=== PATIENT | female | born 1935 | race Caucasian/White ===

== ENCOUNTER → 2016-07-04 | Outpatient (CLI) | payer BC, OTHER ==
[~2016-07-04] MED LIST: ASPEC81 PO; AZPOPS OPB; BIMA0.038 OPB; CALCTAB5 PO; CEPH500C PO; MULT-506 PO; SULF800T23 PO; TIMO0.2527 OPB
--- NOTE | 2016-07-05 13:10 | MAMMOGRAPHY REPORT ---
BILATERAL DIGITAL SCREENING MAMMOGRAM WITH CAD: 07/04/2016 CLINICAL HISTORY: Routine screening. Patient has no complaints. TECHNIQUE: Current study was also evaluated with a Computer Aided Detection (CAD) system. Bilatera l CC and MLO views were obtained. COMPARISON: Comparison is made to exams dated: 06/28/2014 mammogram, 02/03/2013 mammogram, 2 mammogram, 01/30/2011 mammogram, 01/29/2010 mammogram, and 01/26/2009 mammogram - [facility]. BREAST COMPOSITION: There are scattered areas of fibroglandular density in both breasts. FINDINGS: No suspicious masses, calcifications, or areas of architectural distortion are noted in e ither breast. There has been no significant interval change compared to prior exams. IMPRESSION: ACR BI-RADS CATEGORY 1: NEGATIVE There is no mammographic evidence of malignancy. A 1 year screening mammogram is recommended. The p atient will receive written notification of the results. Approximately 10% of breast cancers are not detected with mammography. A negative mammographic repor t should not delay biopsy if a clinically suggestive mass is present. Ashley Luis M.D. /:07/04/2016 16:00:28 Atmospheric Drier Tender: Arleen Disla, [facility] letter sent: Normal 1/2 BI-RADS Code: ACR BI-RADS Category 1: Negative
== END | disposition home or self-care (01) ==
LOC: C.MAMM 15:38
PROVIDERS: ATTEND Family Medicine
DX: Z12.31 Encounter for screening mammogram for malignant neoplasm of breast (principal)

== ENCOUNTER → 2017-07-08 | Outpatient (CLI) | payer OTHER, BC ==
--- NOTE | 2017-07-09 14:21 | MAMMOGRAPHY REPORT ---
BILATERAL DIGITAL SCREENING MAMMOGRAM TOMOSYNTHESIS WITH CAD: 07/08/2017 CLINICAL HISTORY: Routine screening. Patient has no complaints. TECHNIQUE: Breast tomosynthesis in addition to standard 2D mammography was performed. Current study was also evaluated with a Computer Aided Detection (CAD) system. COMPARISON: Comparison is made to exams dated: 07/04/2016 mammogram, 07/04/2015 mammogram, 06/28/2014 m ammogram, 02/03/2013 mammogram, 02/03/2012 mammogram, and 01/30/2011 mammogram - [facility]. BREAST COMPOSITION: There are scattered areas of fibroglandular density in both breasts. FINDINGS: There are a few scattered benign round microcalcifications. Stable nodularity in the 12:00 right breast. No suspicious mass, architectural distortion or cluster of microcalcifications is see n. IMPRESSION: ACR BI-RADS CATEGORY 1: NEGATIVE There is no mammographic evidence of malignancy. A 1 year screening mammogram is recommended. The pa tient will receive written notification of the results. Approximately 10% of breast cancers are not detected with mammography. A negative mammographic report should not delay biopsy if a clinically suggestive mass is present. Renetta Howell M.D. ay/:07/08/2017 19:20:36 Parks And Recreation Manager: Talia MCGHEE)(M), [facility] letter sent: Normal 1/2 BI-RADS Code: ACR BI-RADS Category 1: Negative
== END | disposition home or self-care (01) ==
LOC: C.MAMM 09:46
PROVIDERS: ATTEND Family Medicine
DX: Z12.31 Encounter for screening mammogram for malignant neoplasm of breast (principal)

== ENCOUNTER 2021-10-23 14:17 | Observation (INO) ==
--- NOTE | 2021-10-23 15:00 | ED Triage Note ---
Date of Service October 23, 2021 History of Present Illness This patient was briefly evaluated while in triage. An abbreviated physical exam was performed. This patient is a 86-year-old Female who presents to the ED for evaluation of chills and vomiting. states this developed suddenly after lunch. Physical Exam VITALS: Vitals are noted on the nurse's note and reviewed by myself. Vital signs stable. GENERAL: This is an 86-year-old female, in no acute distress, well-developed well-nourished. HEART: Regular rate and rhythm without murmurs gallops or rubs. LUNGS: Clear to auscultation bilaterally without wheezes, rales or rhonchi. NEURO: Patient was alert and oriented to person place and time. Initial orders for labs and / or imaging were placed and patient was placed in the waiting area until a bed is available. Please see further documentation for the full ED course.
[2021-10-23] MEDS ORDERED: SODIUM CHLORIDE 0.9% 1000ML 500 ML IV ONE (17:11)
--- NOTE | 2021-10-23 17:17 | Emergency Department Note ---
Impression & Plan Nausea and vomiting, Transaminitis DC ED Provider Note HPI: The patient is an 86-year-old female with history of mild to moderate dementia according to her significant other at the bedside, presents the emergency department today with generalized illness as well as an episode of vomiting on the way to the hospital. Patient was telling her significant other today when they were on a walk that she was not feeling well. She was complaining of some chills, generalized weakness. They decided to come to the emergency room for evaluation and the patient had an episode of vomiting on the way over. On my assessment the patient is calm, she is in no acute distress, she is hemodynamically stable, she examines without any focal deficits, her abdomen is soft and nontender, she is currently denying any focal complaint of pain. Patient significant other at the bedside tells me that the patient has been complaining of feeling "cold" transiently over the past several days. She has not had any noted/documented fevers at home. ROS: -GI: Nausea and vomiting -General: Generalized weakness, chills *10 point review systems was conducted and is otherwise negative unless stated above *Outpatient medications and allergy history reviewed PE: General: Alert, NAD HEENT: Normocephalic, atraumatic Eyes: Extraocular eye movement is intact, no scleral erythema Pulmonary: Clear to auscultation bilaterally, no wheezing Cardio: Regular rate and rhythm GI: Abdomen is soft, mild tenderness diffusely to palpation without any guarding or rigidity, no distention : No suprapubic tenderness MSK: No evidence of trauma or malformation of the extremities, no edema Skin: No evidence of rash Neuro: Alert, no focal deficits Psychiatric: Cooperative manager monitoring: - An order was placed for continuous cardiac monitoring - Patient was noted to be in sinus rhythm with a rate of 90 EKG: Rate: 91 Rhythm: Normal sinus rhythm Intervals: Within normal limits ST changes: No ST elevation Time: 1656 Medical Decision Making: Patient presented to the emergency department with generalized weakness, an episode of emesis, also complaining of some chills recently. She does have a history of some moderate dementia and she is unable to give me a full history on arrival. History is obtained by the patient's at the bedside. Shortly after arrival IV was established, lab work obtained, CT imaging of the abdomen pelvis was ordered. Lab work shows evidence of a transaminitis with slightly elevated bilirubin. CT imaging of the abdomen pelvis does not show any obvious gallbladder pathology or any obvious acute surgical pathology.ultrasound imaging of the right upper quadrant was therefore ordered and does not show any obvious evidence of choledocholithiasis. Patient is remained hemodynamically stable here. Given the patient's age and comorbidities in addition to transaminitis with elevated bilirubin, I do feel that she should be admitted for GI consultation and further care. She may require MRCP or further diagnostic imaging to determine the source of her transaminitis and vomiting. Patient has not been actively vomiting here in the ED. She did require a dose of Zyprexa for some sundowning/agitation, she was actively trying to get out of bed and leave the department. She was assigned a one-to-one sitter. She did respond well to this. I discussed the above findings with the patient's , he is in agreement for the patient to be admitted. Case was then discussed with the on-call hospitalist for [facility] and the patient was admitted in stable condition for further care. Critical care time: 33 minutes -Administration of intramuscular medications for acute agitation in the setting of dementia, arrangement of admission for transaminitis and elevated bilirubin, time spent at the bedside, discussion with family and arrangement of admission Diagnosis: 1. Nausea and vomiting 2. Transaminitis 3. Elevated bilirubin level 4. Acute agitation in the setting of underlying dementia Disposition: Admission Dustin Hook DO Emergency Medicine Past Med/Surg History Social History Smoking Status: Never smoker Hx Alcohol Use: No Hx Substance Use: No Preferred Language: [place] Communication Ability: Impaired Communication Ability Comment: Patient has difficulty remembering medical history Polishing Wheel Repairer Required: No Beliefs That Will Affect Care: None Current Living Situation: Spouse Current Living Situation Comment: lives at home with Feels Safe at Home: Yes Safety Concerns: Feels Safe At This Time Assistive Devices: None Allergies Allergies Allergy/AdvReac Type Severity Reaction Status Date / Time adhesive Allergy Unknown UNKNOWN Verified 10/23/21 21:14 Bactrim Allergy Unknown UNKNOWN Verified 10/30/15 15:13 Cephalosporins Allergy Unknown UNKNOWN Verified 10/23/21 21:14 neomycin Allergy Unknown UNKNOWN Verified 10/23/21 21:14 Penicillins Allergy Unknown UNKNOWN Verified 10/23/21 21:14 Sulfa (Sulfonamide Allergy Unknown UNKNOWN Verified 10/23/21 21:14 Antibiotics) sulfamethoxazole [Bactrim] Allergy Unknown UNKNOWN Verified 10/23/21 21:14 trimethoprim [Bactrim] Allergy Unknown UNKNOWN Verified 10/23/21 21:14 Home Meds Home Medications Medication Instructions Recorded Confirmed bimatoprost 0.01 % eye drops 1 drp OPB HS 11/07/20 10/23/21 (Bab[place]unde) brinzolamide 1 % eye 1 drp OPB BID 11/07/20 10/23/21 drops,suspension memantine 10 mg tablet 10 mg PO BID 11/07/20 10/23/21 rivastigmine 4.6 mg/24 hour 1 patch topical DAILY 11/07/20 10/23/21 transdermal patch timolol maleate 0.25 % eye drops 1 drp OPB QAM 11/07/20 10/23/21 Results & Data (ED) Vital Signs Vital Signs - 24 hr 10/23/21 14:58 10/23/21 17:55 10/23/21 17:55 Temperature 37.0 C Temperature Source Temporal Artery Scan Pulse Rate 84 90 Pulse Rate [Finger] 90 Pulse Rhythm Regular Pulse Strength Normal Respiratory Rate 20 18 18 Respiratory Effort / Characteristics Non-Labored Spontaneous Respiratory Depth Normal Respiratory Pattern Regular Blood Pressure 117/72 Blood Pressure [Right Arm] 131/82 Blood Pressure Mean 87 Blood Pressure Mean [Right Arm] 98 Blood Pressure Position Sitting Pulse Oximetry 98 96 96 Oxygen Delivery Method Room Air Room Air Room Air Sepsis Recent Fever Within 48 Hours No Sepsis New/Unexplained Change in Mental Status No Sepsis Action Taken by Nursing No Action Required 10/23/21 18:00 10/23/21 21:00 Temperature Temperature Source Pulse Rate 90 Pulse Rate [Finger] 110 H Pulse Rhythm Pulse Strength Respiratory Rate 22 15 Respiratory Effort / Characteristics Respiratory Depth Respiratory Pattern Blood Pressure 130/77 Blood Pressure [Right Arm] 95/62 L Blood Pressure Mean 94 Blood Pressure Mean [Right Arm] 73 Blood Pressure Position Pulse Oximetry 99 93 Oxygen Delivery Method Room Air Room Air Sepsis Recent Fever Within 48 Hours Sepsis New/Unexplained Change in Mental Status Sepsis Action Taken by Nursing Laboratory Data Result diagrams: 10/23/21 17:47 10/23/21 17:47 Lab Results 10/23/21 10/23/21 10/23/21 Range/Units 17:47 17:47 17:47 WBC 7.14 (4.8-10.8) K/ul RBC 4.33 (3.93-5.22) M/uL Hgb 13.2 (12.0-16.0) g/dl Hct 39.3 (34.1-44.9) % MCV 90.8 (80.0-100.0) fL MCH 30.5 (25.0-34.0) pg MCHC 33.6 (32.0-36.0) g/dL RDW Std Deviation 47.2 H (36.4-46.3) fL RDW Coeff of Erin 14.3 (11.5-14.5) % Plt Count 237 (130-400) K/uL MPV 9.6 (9.4-12.3) fL Immature Gran % (Auto) 0.4 % Neut % (Auto) 80.9 % Lymph % (Auto) 7.1 % [place] % (Auto) 9.5 % Eos % (Auto) 1.8 % Baso % (Auto) 0.3 % Neut # (Auto) 5.77 (1.4-6.5) K/uL Lymph # (Auto) 0.51 L (1.2-3.4) K/uL [place] # (Auto) 0.68 (0.24-0.82) K/uL Eos # (Auto) 0.13 (0-0.50) K/uL Baso # (Auto) 0.02 (0-0.2) K/uL Immature Gran # (Auto) 0.03 H (0.00-0.02) K/uL ESR (0-30) mm/hr PT (9.0-12.0) Seconds INR (0.9-1.1) Sodium 136 (136-145) mmol/L Potassium 3.9 (3.5-5.1) mmol/L Chloride 103 (98-107) mmol/L Carbon Dioxide 25 (21-32) mmol/L Anion Gap 8 (3-11) BUN 17 (6-23) mg/dl Creatinine 0.76 (0.6-1.2) mg/dl Est Cr Clr Drug Dosing 40.5 ml/min Est GFR ( Amer) 81.2 ml/min Est GFR (Non-Af Amer) 70.0 ml/min BUN/Creatinine Ratio 22.4 H (10-20) Glucose 105 H (70-99(Fasting)) mg/dl Calcium 8.8 (8.5-10.1) mg/dl Total Bilirubin 1.2 H (0.2-1.0) mg/dl AST 904 H (13-39) U/L ALT 448 H (7-52) U/L Alkaline Phosphatase 254 H (34-104) U/L Troponin I High Sens 7.9 (0-14) pg/ml C-Reactive Protein (0-0.5) mg/dl Total Protein 6.4 (6.0-8.3) gm/dl Albumin 3.9 (3.4-5.0) gm/dl Globulin 2.5 (2.5-4.0) gm/dl Albumin/Globulin Ratio 1.6 (0.9-2) Urine Color Cancelled Urine Appearance Cancelled Urine pH Cancelled Ur Specific [place] Cancelled Urine Protein Cancelled Urine Glucose (UA) Cancelled Urine Ketones Cancelled Urine Blood Cancelled Urine Nitrite Cancelled Urine Bilirubin Cancelled Urine Urobilinogen Cancelled Ur Leukocyte Esterase Cancelled Urine WBC (Auto) Cancelled Urine RBC (Auto) Cancelled U Hyaline Cast (Auto) Cancelled U Epithel Cells (Auto) Cancelled Urine Bacteria (Auto) Cancelled Ur Renal Epithelial Cell Cancelled Urine Crystals Cancelled Calcium Oxalate Crystal Cancelled Uric Acid Crystals Cancelled Triple Phos Crystals Cancelled Other Crystals Cancelled Amorphous Sediment Cancelled Granular Casts Cancelled Waxy Casts Cancelled RBC Casts Cancelled WBC Casts Cancelled Other Casts Cancelled Urine Mucus Cancelled Urine Other Cancelled Urine Trichomonas Cancelled Urine Yeast Cancelled Urine Sperm Cancelled Ur Oval Fat Bodies Cancelled SARS-CoV-2 (PCR) (Negative) Influenza Type A (PCR) (Neg) Influenza Type B (PCR) (Neg) RSV (RT-PCR) (Neg) 10/23/21 10/23/21 10/23/21 Range/Units 17:47 17:47 17:47 WBC (4.8-10.8) K/ul RBC (3.93-5.22) M/uL Hgb (12.0-16.0) g/dl Hct (34.1-44.9) % MCV (80.0-100.0) fL MCH (25.0-34.0) pg MCHC (32.0-36.0) g/dL RDW Std Deviation (36.4-46.3) fL RDW Coeff of Erin (11.5-14.5) % Plt Count (130-400) K/uL MPV (9.4-12.3) fL Immature Gran % (Auto) % Neut % (Auto) % Lymph % (Auto) % [place] % (Auto) % Eos % (Auto) % Baso % (Auto) % Neut # (Auto) (1.4-6.5) K/uL Lymph # (Auto) (1.2-3.4) K/uL [place] # (Auto) (0.24-0.82) K/uL Eos # (Auto) (0-0.50) K/uL Baso # (Auto) (0-0.2) K/uL Immature Gran # (Auto) (0.00-0.02) K/uL ESR 16 (0-30) mm/hr PT 11.3 (9.0-12.0) Seconds INR 1.1 (0.9-1.1) Sodium (136-145) mmol/L Potassium (3.5-5.1) mmol/L Chloride (98-107) mmol/L Carbon Dioxide (21-32) mmol/L Anion Gap (3-11) BUN (6-23) mg/dl Creatinine (0.6-1.2) mg/dl Est Cr Clr Drug Dosing ml/min Est GFR ( Amer) ml/min Est GFR (Non-Af Amer) ml/min BUN/Creatinine Ratio (10-20) Glucose (70-99(Fasting)) mg/dl Calcium (8.5-10.1) mg/dl Total Bilirubin (0.2-1.0) mg/dl AST (13-39) U/L ALT (7-52) U/L Alkaline Phosphatase (34-104) U/L Troponin I High Sens (0-14) pg/ml C-Reactive Protein (0-0.5) mg/dl Total Protein (6.0-8.3) gm/dl Albumin (3.4-5.0) gm/dl Globulin (2.5-4.0) gm/dl Albumin/Globulin Ratio (0.9-2) Urine Color Urine Appearance Urine pH Ur Specific [place] Urine Protein Urine Glucose (UA) Urine Ketones Urine Blood Urine Nitrite Urine Bilirubin Urine Urobilinogen Ur Leukocyte Esterase Urine WBC (Auto) Urine RBC (Auto) U Hyaline Cast (Auto) U Epithel Cells (Auto) Urine Bacteria (Auto) Ur Renal Epithelial Cell Urine Crystals Calcium Oxalate Crystal Uric Acid Crystals Triple Phos Crystals Other Crystals Amorphous Sediment Granular Casts Waxy Casts RBC Casts WBC Casts Other Casts Urine Mucus Urine Other Urine Trichomonas Urine Yeast Urine Sperm Ur Oval Fat Bodies SARS-CoV-2 (PCR) NEGATIVE (Negative) Influenza Type A (PCR) Negative (Neg) Influenza Type B (PCR) Negative (Neg) RSV (RT-PCR) Negative (Neg) 10/23/21 Range/Units 17:47 WBC (4.8-10.8) K/ul RBC (3.93-5.22) M/uL Hgb (12.0-16.0) g/dl Hct (34.1-44.9) % MCV (80.0-100.0) fL MCH (25.0-34.0) pg MCHC (32.0-36.0) g/dL RDW Std Deviation (36.4-46.3) fL RDW Coeff of Erin (11.5-14.5) % Plt Count (130-400) K/uL MPV (9.4-12.3) fL Immature Gran % (Auto) % Neut % (Auto) % Lymph % (Auto) % [place] % (Auto) % Eos % (Auto) % Baso % (Auto) % Neut # (Auto) (1.4-6.5) K/uL Lymph # (Auto) (1.2-3.4) K/uL [place] # (Auto) (0.24-0.82) K/uL Eos # (Auto) (0-0.50) K/uL Baso # (Auto) (0-0.2) K/uL Immature Gran # (Auto) (0.00-0.02) K/uL ESR (0-30) mm/hr PT (9.0-12.0) Seconds INR (0.9-1.1) Sodium (136-145) mmol/L Potassium (3.5-5.1) mmol/L Chloride (98-107) mmol/L Carbon Dioxide (21-32) mmol/L Anion Gap (3-11) BUN (6-23) mg/dl Creatinine (0.6-1.2) mg/dl Est Cr Clr Drug Dosing ml/min Est GFR ( Amer) ml/min Est GFR (Non-Af Amer) ml/min BUN/Creatinine Ratio (10-20) Glucose (70-99(Fasting)) mg/dl Calcium (8.5-10.1) mg/dl Total Bilirubin (0.2-1.0) mg/dl AST (13-39) U/L ALT (7-52) U/L Alkaline Phosphatase (34-104) U/L Troponin I High Sens (0-14) pg/ml C-Reactive Protein 2.14 H (0-0.5) mg/dl Total Protein (6.0-8.3) gm/dl Albumin (3.4-5.0) gm/dl Globulin (2.5-4.0) gm/dl Albumin/Globulin Ratio (0.9-2) Urine Color Urine Appearance Urine pH Ur Specific [place] Urine Protein Urine Glucose (UA) Urine Ketones Urine Blood Urine Nitrite Urine Bilirubin Urine Urobilinogen Ur Leukocyte Esterase Urine WBC (Auto) Urine RBC (Auto) U Hyaline Cast (Auto) U Epithel Cells (Auto) Urine Bacteria (Auto) Ur Renal Epithelial Cell Urine Crystals Calcium Oxalate Crystal Uric Acid Crystals Triple Phos Crystals Other Crystals Amorphous Sediment Granular Casts Waxy Casts RBC Casts WBC Casts Other Casts Urine Mucus Urine Other Urine Trichomonas Urine Yeast Urine Sperm Ur Oval Fat Bodies SARS-CoV-2 (PCR) (Negative) Influenza Type A (PCR) (Neg) Influenza Type B (PCR) (Neg) RSV (RT-PCR) (Neg) Administered Medications Discontinued Medications Sodium Chloride (Nss 1000ml) 500 mls @ 999 mls/hr IV .Q31M ONE Stop: 10/23/21 17:41 Last Infusion: 10/23/21 18:34 Dose: 0 mls/hr Documented By: Admin: 10/23/21 18:02 Dose: 999 mls/hr Documented By: MARINA Lactated Ringer's (Lr) 500 mls @ 250 mls/hr IV .Q2H ONE Stop: 10/23/21 23:26 Last Admin: 10/23/21 22:00 Dose: 250 mls/hr Documented By: VIVIANA Ioversol (Optiray 300 100ml) 90 ml IV ONCE ONE Stop: 10/23/21 18:50 Last Admin: 10/23/21 18:50 Dose: 90 ml Documented By: CHUY Olanzapine (Olanzapine 10 Mg/2.1 Ml Sdv) 5 mg IM NOW STA Stop: 10/23/21 19:30 Last Admin: 10/23/21 19:42 Dose: 5 mg Documented By: VIVIANA Imaging Data Radiologist's Impression: Abdomen/Pelvis CT 10/23/21 17:[address] WITH IV CONTRAST CT DOSE: 475.52 mGy.cm HISTORY: Acute nausea and vomiting N/V TECHNIQUE: Multiaxial CT images of the abdomen and pelvis were performed following the IV administration of 88 cc of Optiray, A dose lowering technique was utilized adhering to the principles of ALARA. COMPARISON STUDY: None. FINDINGS: The study is motion degraded. Subsegmental bibasilar atelectasis. There is no pneumatosis or pneumoperitoneum. Cardiomegaly with coronary artery calcifications. The spleen, pancreas, adrenal glands and gallbladder are unremarkable. Liver is also within normal limits. Patency of the hepatic and portal veins. Symmetric enhancement of the kidneys. No hydronephrosis. Unremarkable urinary bladder. Calcifications of the uterus are suggestive of fibroids. There is questioned thickening of the fundal endometrium. Atherosclerosis of the aorta without aneurysm. There is no lymphadenopathy identified. Tiny hiatal hernia. No bowel obstruction or bowel wall thickening. Colonic diverticulosis without acute diverticulitis. Mild to moderate colonic fecal rete ntion. Normal appendix. Unremarkable soft tissues. Multilevel degenerative changes of the lumbar spine. Probable disc extrusion posterior to L5 results in at least moderate central canal stenosis. IMPRESSION: 1. No bowel obstruction or bowel wall thickening. Normal appendix. 2. Colonic diverticulosis without acute diverticulitis. 3. Fibroid uterus. 4. Small hiatal hernia. 5. Additional findings as above. ACT 112: Negative or not required by law. The above report was generated using voice recognition software. It may contain grammatical, syntax or spelling errors. Electronically signed by: Kana Justice M.D. 10/23/2021 7:13 PM Chest X-Ray 10/23/21 17:12 XR chest 1V portable CLINICAL HISTORY: N/V TECHNIQUE: Single frontal radiograph of the chest was obtained. Comparison: Comparison is made to 06/22/[address] chest 02/12/2006 FINDINGS: No lines and tubes are seen. Calcified aortic knob is seen. The lungs are clear. No evidence of pleural effusion or pneumothorax. IMPRESSION: No acute chest disease. ACT 112: Negative or not required by law. Electronically signed by: Hans Paris M.D. 10/23/2021 5:34 PM Gallbladder Ultrasound 10/23/21 19:24 US gallbladder HISTORY: 86 years-old Female Transaminitis, vomiting acute nausea with vomiting COMPARISON: CT abdomen and pelvis of same day TECHNIQUE: Multiple real-time sonographic images of the abdominal right upper quadrant were obtained assessing grayscale appearance and color flow FINDINGS: The visualized pancreas is unremarkable. The liver is within normal limits measuring 13.67 m in length. No hepatic mass identified. Trace gallbladder sludge without cholelithiasis, wall thickening or pericholecystic fluid. Negative sonographic Manning's sign. Normal common bile duct, 5 mm. The imaged right kidney is unremarkable without hydronephrosis. IMPRESSION: 1. Trace gallbladder sludge without cholelithiasis or sonographic evidence of acute cholecystitis. 2. No biliary ductal dilation. ACT 112: Negative or not required by law. The above report was generated using voice recognition software. It may contain grammatical, syntax or spelling errors. Electronically signed by: Kana Justice M.D. 10/23/2021 8:40 PM Discharge Plan Visit Data Chief Complaint: Vomiting Stated Complaint: VOMITING ED Provider: Dustin Hook Discharge Problem: Nausea and vomiting, Transaminitis Patient Disposition: Admitted As Inpatient Discharge Instructions Interventions: ED Discharge Assessment Last Done: 10/23/21 22:32
--- NOTE | 2021-10-23 17:36 | XRay Report ---
XR chest 1V portable CLINICAL HISTORY: N/V TECHNIQUE: Single frontal radiograph of the chest was obtained. Comparison: Comparison is made to 06/22/[address] chest 02/12/2006 FINDINGS: No lines and tubes are seen. Calcified aortic knob is seen. The lungs are clear. No evidence of pleur al effusion or pneumothorax. IMPRESSION: No acute chest disease. ACT 112: Negative or not required by law. Electronically signed by: Hans Paris M.D. 10/23/2021 5:34 PM
[2021-10-23 18:07] LABS: Basophils # (auto) 0.02 K/uL (0-0.2); Basophils % (auto) 0.3 %; Eosinophils # (auto) 0.13 K/uL (0-0.50); Eosinophils % (auto) 1.8 %; Hematocrit (blood only) 39.3 % (34.1-44.9); Hemoglobin 13.2 g/dl (12.0-16.0); Immature Granulocytes # (auto) 0.03 K/uL (0.00-0.02); Immature Granulocytes % (auto) 0.4 %; Lymphocytes # (auto) 0.51 K/uL (1.2-3.4); Lymphocytes % (auto) 7.1 %; Mean Corpuscular Hemoglobin 30.5 pg (25.0-34.0); Mean Corpuscular Hgb Conc 33.6 g/dL (32.0-36.0); Mean Corpuscular Volume 90.8 fL (80.0-100.0); Mean Platelet Volume 9.6 fL (9.4-12.3); Monocytes # (auto) 0.68 K/uL (0.24-0.82); Monocytes % (auto) 9.5 %; Neutrophils # (auto) 5.77 K/uL (1.4-6.5); Neutrophils % (auto) 80.9 %; Platelet Count 237 K/uL (130-400); RDW Coefficient of Variation 14.3 % (11.5-14.5); RDW Standard Deviation 47.2 fL (36.4-46.3); Red Blood Count 4.33 M/uL (3.93-5.22); White Blood Count 7.14 K/ul (4.8-10.8)
[2021-10-23 18:33] LABS: Troponin I High Sensitivity 7.9 pg/ml (0-14)
[2021-10-23 18:34] LABS: Albumin Globulin Ratio 1.6 (0.9-2); Albumin Level 3.9 gm/dl (3.4-5.0); BUN Creatinine Ratio 22.4 (10-20); Bilirubin,Total 1.2 mg/dl (0.2-1.0); Calcium 8.8 mg/dl (8.5-10.1); Creatinine Clr Calc Pharmacy 40.5 ml/min; Est GFR (African American) 81.2 ml/min; Globulin 2.5 gm/dl (2.5-4.0); Potassium 3.9 mmol/L (3.5-5.1); Total Protein 6.4 gm/dl (6.0-8.3)
[2021-10-23] MEDS ORDERED: OPTIRAY 300 100mL IV ONE (18:49)
[2021-10-23 18:50] LABS: Influenza A virus by PCR Negative (Neg); Influenza B virus by PCR Negative (Neg); RSV by PCR Negative (Neg); SARS CoV2 RNA(COVID-19) InHosp NEGATIVE (Negative)
--- NOTE | 2021-10-23 19:16 | CT Scan Report ---
ABDOMEN AND PELVIS CT WITH IV CONTRAST CT DOSE: 475.52 mGy.cm HISTORY: Acute nausea and vomiting N/V TECHNIQUE: Multiaxial CT images of the abdomen and pelvis were performed following the IV administrat ion of 88 cc of Optiray, A dose lowering technique was utilized adhering to the principles of ALARA. COMPARISON STUDY: None. FINDINGS: The study is motion degraded. Subsegmental bibasilar atelectasis. There is no pneumatosis o r pneumoperitoneum. Cardiomegaly with coronary artery calcifications. The spleen, pancreas, adrenal g lands and gallbladder are unremarkable. Liver is also within normal limits. Patency of the hepatic an d portal veins. Symmetric enhancement of the kidneys. No hydronephrosis. Unremarkable urinary bladder . Calcifications of the uterus are suggestive of fibroids. There is questioned thickening of the fund al endometrium. Atherosclerosis of the aorta without aneurysm. There is no lymphadenopathy identified . Tiny hiatal hernia. No bowel obstruction or bowel wall thickening. Colonic diverticulosis without acu te diverticulitis. Mild to moderate colonic fecal retention. Normal appendix. Unremarkable soft tissu es. Multilevel degenerative changes of the lumbar spine. Probable disc extrusion posterior to L5 resu lts in at least moderate central canal stenosis. IMPRESSION: 1. No bowel obstruction or bowel wall thickening. Normal appendix. 2. Colonic diverticulosis without acute diverticulitis. 3. Fibroid uterus. 4. Small hiatal hernia. 5. Additional findings as above. ACT 112: Negative or not required by law. The above report was generated using voice recognition software. It may contain grammatical, syntax o r spelling errors. Electronically signed by: Kana Justice M.D. 10/23/2021 7:13 PM
[2021-10-23] MEDS ORDERED: OLANZapine 10 MG/2.1 ML SDV IM STA (19:29)
--- NOTE | 2021-10-23 20:41 | Ultrasound Report ---
US gallbladder HISTORY: 86 years-old Female Transaminitis, vomiting acute nausea with vomiting COMPARISON: CT abdomen and pelvis of same day TECHNIQUE: Multiple real-time sonographic images of the abdominal right upper quadrant were obtained assessing grayscale appearance and color flow FINDINGS: The visualized pancreas is unremarkable. The liver is within normal limits measuring 13.67 m in lengt h. No hepatic mass identified. Trace gallbladder sludge without cholelithiasis, wall thickening or pe richolecystic fluid. Negative sonographic Manning's sign. Normal common bile duct, 5 mm. The imaged right kidney is unremarkable without hydronephrosis. IMPRESSION: 1. Trace gallbladder sludge without cholelithiasis or sonographic evidence of acute cholecystitis. 2. No biliary ductal dilation. ACT 112: Negative or not required by law. The above report was generated using voice recognition software. It may contain grammatical, syntax o r spelling errors. Electronically signed by: Kana Justice M.D. 10/23/2021 8:40 PM
[2021-10-23] MEDS ORDERED: LACTATED RINGER'S 500 ML IV ONE (21:27)
[2021-10-23] MEDS ORDERED: ONDANSETRON INJ 2 MG/ML 2 ML VIAL IV PRN (21:32)
[2021-10-23] MEDS ORDERED: POLYETHYLENE (MIRALAX) 17 GM PACK PO PRN (21:32)
--- NOTE | 2021-10-23 21:59 | History & Physical Report ---
Date of Service October 23, 2021 Assessment & Plan (1) Transaminitis: Plan: - unclear etiology but may be medication injury - PLT wnl and imaging negative for any hepatic or gallbladder lesions or pathology - no new supplements or foods, alcohol or acetaminophen ingestion, no sick contacts or drug use - new medication, atorvastatin within last 3 days could explain liver findings but would be rare - will hold statin - will send hepatitis panel, GARY, ggt, CRP, ESR, CK, INR - GI consult placed - will monitor for now (2) Nausea and vomiting: Plan: - unclear if related to liver findings - no subsequent episodes - denies nausea on exam - denies abdominal pain - CT-AP unremarkable for intraabdominal pathology - IV hydration - will monitor (3) Mild dementia: Plan: - takes memantine and rivastigmine patch for many years - had episode of sundowning in ED s/p IM zyprexa with good result - patient pleasantly confused and interactive on my exam - will monitor - gentle redirection if possible Plan DVT ppx: lovenox Code Status: Full Code Dispo: telemetry Jostin Pereira MD Hospital Medicine Admission and Anticipated Discharge Date Admission Date: 10/23/2021 History of Present Illness Chief Complaint: nausea and vomiting x1 Primary Care Provider: Rom Frazier MD The patient is an 86 year old woman with pmh mild dementia who presented with a 1-2 days of feeling "cold" and weakness and one episode of vomiting on the way to the hospital. The history was taken mainly from her , Danny Rosa, as the patient was mildly confused in the ED. She reported not complaints on evaluation. Her noted that she expressed feeling a little weak and at times "cold" that required extra clothing. He denied that she had a fever, cough, shortness of breath, chest pain, diarrhea, abdominal pain, ambulatory issues. She did not have nausea or vomiting until on the way to the hospital, she had one episode of vomiting that he described as "minimal." Of not she is only taking memantine and rivastigmine patch for up to 10 years for dementia. She recently, about 3 days ago, started taking atorvastatin prescribed by her doctor. Otherwise, he denies any other new medications, no other sick contacts, tick exposures, supplements, new foods, alcohol use, acetaminophen ingestion. She is mostly independent but relies on her for some ADLs but she is ambulatory without issue, going to the gym and walking about 3x/week. Denies alcohol, tobacco, drug use. Discussed with patient's Code status and they have an advanced directive that indicates full code but would not want life prolonged on ventilator if things did not improve relatively quickly and course is to be prolonged and indicated that he is the POA. Patient status put as Full Code. In the ED, vitals initially stable. Labs were significant for WBC 7, PLT 237, tbili 1.2, AST 904, ALT 448, ALP 254 (previously normal). Imaging with CT-AP and Liver US were unremarkable for biliary or hepatic abnormalities. She was admitted to medicine for further work up and management. Allergies Allergy/AdvReac Type Severity Reaction Status Date / Time adhesive Allergy Unknown UNKNOWN Verified 10/23/21 21:14 Bactrim Allergy Unknown UNKNOWN Verified 10/30/15 15:13 Cephalosporins Allergy Unknown UNKNOWN Verified 10/23/21 21:14 neomycin Allergy Unknown UNKNOWN Verified 10/23/21 21:14 Penicillins Allergy Unknown UNKNOWN Verified 10/23/21 21:14 Sulfa (Sulfonamide Allergy Unknown UNKNOWN Verified 10/23/21 21:14 Antibiotics) sulfamethoxazole [Bactrim] Allergy Unknown UNKNOWN Verified 10/23/21 21:14 trimethoprim [Bactrim] Allergy Unknown UNKNOWN Verified 10/23/21 21:14 Home Medications Medication Instructions Recorded Confirmed Type bimatoprost 0.01 % eye drops 1 drp OPB HS 11/07/20 10/23/21 History (Lumigan) brinzolamide 1 % eye 1 drp OPB BID 11/07/20 10/23/21 History drops,suspension memantine 10 mg tablet 10 mg PO BID 11/07/20 10/23/21 History rivastigmine 4.6 mg/24 hour 1 patch topical DAILY 11/07/20 10/23/21 History transdermal patch timolol maleate 0.25 % eye drops 1 drp OPB QAM 11/07/20 10/23/21 History Past Med/Surg History Social History Smoking Status: Never smoker Preferred Language: Vietnamese Feels Safe at Home: Yes Review of Systems Review of Systems: All systems reviewed & are unremarkable except as noted in Subjective Physical Exam Constitutional: WD/WN, vitals as above Eyes: PERRL, conjunctivae normal, anicteric sclerae ENMT: external ear and nose normal, oropharynx normal Neck: trachea midline, no thyromegaly Respiratory: normal respiratory effort, lungs clear to auscultation Cardiovascular: RRR, no murmur, no edema Gastrointestinal (Abdomen): normal bowel sounds, soft, nontender, no hepatosplenomegaly Musculoskeletal: no cyanosis or clubbing, extremities motor strength 5/5 Skin: no rashes, warm and dry Neurologic: patellar DTR's 2+ bilat, sensation intact and PERRL, EOMI, accommodation nl, no face palsy, no dysarthria Psychiatric: Orientation: alert, oriented to person, oriented to time and cooperative; + not oriented to place Affect: euthymic affect Results & Data Results & Data ([facility]) Vital Signs (Past 12 Hours) Vital Signs Temp Pulse Pulse Resp BP BP Pulse Ox 10/23/21 21:00 110 H 15 95/62 L 93 10/23/21 18:00 90 22 130/77 99 10/23/21 17:55 90 18 96 10/23/21 17:55 90 18 131/82 96 10/23/21 14:58 37.0 C 84 20 117/72 98 O2 Del Method 10/23/21 21:00 Room Air 10/23/21 18:00 Room Air 10/23/21 17:55 Room Air 10/23/21 17:55 Room Air 10/23/21 14:58 Room Air Laboratory Results Short CBC 10/23/21 Range/Units 17:47 WBC 7.14 (4.8-10.8) K/ul Hgb 13.2 (12.0-16.0) g/dl Hct 39.3 (34.1-44.9) % Plt Count 237 (130-400) K/uL BMP 10/23/21 17:47 Sodium 136 Potassium 3.9 Chloride 103 Carbon Dioxide 25 BUN 17 Creatinine 0.76 Glucose 105 H Calcium 8.8 Liver Function 10/23/21 Range/Units 17:47 Total Bilirubin 1.2 H (0.2-1.0) mg/dl AST 904 H (13-39) U/L ALT 448 H (7-52) U/L Alkaline Phosphatase 254 H (34-104) U/L Albumin 3.9 (3.4-5.0) gm/dl Urine 10/23/21 Range/Units 17:47 Urine Color Cancelled Urine Appearance Cancelled Urine pH Cancelled Ur Specific [place] Cancelled Urine Protein Cancelled Urine Glucose (UA) Cancelled Diagnostic Findings Abdomen/Pelvis CT 10/23/21 17:[address] WITH IV CONTRAST CT DOSE: 475.52 mGy.cm HISTORY: Acute nausea and vomiting N/V TECHNIQUE: Multiaxial CT images of the abdomen and pelvis were performed following the IV administration of 88 cc of Optiray, A dose lowering technique was utilized adhering to the principles of ALARA. COMPARISON STUDY: None. FINDINGS: The study is motion degraded. Subsegmental bibasilar atelectasis. There is no pneumatosis or pneumoperitoneum. Cardiomegaly with coronary artery calcifications. The spleen, pancreas, adrenal glands and gallbladder are unremarkable. Liver is also within normal limits. Patency of the hepatic and portal veins. Symmetric enhancement of the kidneys. No hydronephrosis. Unremarkable urinary bladder. Calcifications of the uterus are suggestive of fibroids. There is questioned thickening of the fundal endometrium. Atherosclerosis of the aorta without aneurysm. There is no lymphadenopathy identified. Tiny hiatal hernia. No bowel obstruction or bowel wall thickening. Colonic diverticulosis without acute diverticulitis. Mild to moderate colonic fecal retention. Normal appendix. Unremarkable soft tissues. Multilevel degenerative changes of the lumbar spine. Probable disc extrusion posterior to L5 results in at least moderate central canal stenosis. IMPRESSION: 1. No bowel obstruction or bowel wall thickening. Normal appendix. 2. Colonic diverticulosis without acute diverticulitis. 3. Fibroid uterus. 4. Small hiatal hernia. 5. Additional findings as above. ACT 112: Negative or not required by law. The above report was generated using voice recognition software. It may contain grammatical, syntax or spelling errors. Electronically signed by: Kana Justice M.D. 10/23/2021 7:13 PM Chest X-Ray 10/23/21 17:12 XR chest 1V portable CLINICAL HISTORY: N/V TECHNIQUE: Single frontal radiograph of the chest was obtained. Comparison: Comparison is made to 06/22/[address] chest 02/12/2006 FINDINGS: No lines and tubes are seen. Calcified aortic knob is seen. The lungs are clear. No evidence of pleural effusion or pneumothorax. IMPRESSION: No acute chest disease. ACT 112: Negative or not required by law. Electronically signed by: Hans Paris M.D. 10/23/2021 5:34 PM Gallbladder Ultrasound 10/23/21 19:24 US gallbladder HISTORY: 86 years-old Female Transaminitis, vomiting acute nausea with vomiting COMPARISON: CT abdomen and pelvis of same day TECHNIQUE: Multiple real-time sonographic images of the abdominal right upper quadrant were obtained assessing grayscale appearance and color flow FINDINGS: The visualized pancreas is unremarkable. The liver is within normal limits measuring 13.67 m in length. No hepatic mass identified. Trace gallbladder sludge without cholelithiasis, wall thickening or pericholecystic fluid. Negative sonographic Manning's sign. Normal common bile duct, 5 mm. The imaged right kidney is unremarkable without hydronephrosis. IMPRESSION: 1. Trace gallbladder sludge without cholelithiasis or sonographic evidence of acute cholecystitis. 2. No biliary ductal dilation. ACT 112: Negative or not required by law. The above report was generated using voice recognition software. It may contain grammatical, syntax or spelling errors. Electronically signed by: Kana Justice M.D. 10/23/2021 8:40 PM Medications Administered Current Inpatient Medications Enoxaparin Sodium (Enoxaparin Inj 30 Mg/0.3 Ml Syr) 30 mg SQ Q24H WOO Stop: 11/23/21 08:59 Lactated Ringer's (Lr) 500 mls @ 250 mls/hr IV .Q2H ONE Stop: 10/23/21 23:26 Ondansetron HCl (Ondansetron Inj 2 Mg/Ml 2 Ml Vial) 4 mg IV Q6H PRN PRN Reason: Nausea Stop: 10/24/21 21:31 Polyethylene Glycol (Polyethylene (Miralax) 17 Gm Pack) 17 gm PO DAILY PRN PRN Reason: Constipation Stop: 11/22/21 21:31 Code Status & VTE Plan Code Status Full Code VTE Prophylaxis Plan VTE Prophylaxis will be ordered: Yes
[2021-10-23 22:28] LABS: Appearance Urine Clear (Clear); Bacteria Urine Automated Negative (Negative); Bilirubin Urine Negative (Negative); Blood Urine Negative (Negative); Cast Urine Automated 0 /lpf (0-5); Color Urine Yellow; Glucose Urine UA Negative (Negative); Ketones Urine Trace (Negative); Leukocyte Esterase Urine Negative (Negative); Nitrite Urine Negative (Negative); RBC Urine Automated 0-4 /hpf (0-4); Specific Gravity Urine > 1.045 (1.000-1.030); Urobilinogen Urine Negative (Negative); pH Urine 8.5 (4.5-7.5)
[2021-10-23 22:36] LABS: Protein Urine Trace (Negative)
[2021-10-23 22:37] LABS: INR 1.1 (0.9-1.1); Prothrombin Time 11.3 Seconds (9.0-12.0)
[2021-10-24] MEDS ORDERED: LACTATED RINGER'S 500 ML IV ONE (00:33)
[2021-10-24] MEDS ORDERED: LACTATED RINGER'S 1,000 ML IV SCH (03:45)
[2021-10-24 06:19] LABS: Basophils # (auto) 0.02 K/uL (0-0.2); Basophils % (auto) 0.3 %; Eosinophils # (auto) 0.24 K/uL (0-0.50); Hematocrit (blood only) 34.7 % (34.1-44.9); Hemoglobin 11.9 g/dl (12.0-16.0); Immature Granulocytes # (auto) 0.03 K/uL (0.00-0.02); Immature Granulocytes % (auto) 0.5 %; Lymphocytes # (auto) 0.56 K/uL (1.2-3.4); Lymphocytes % (auto) 9.2 %; Mean Corpuscular Hemoglobin 30.7 pg (25.0-34.0); Mean Corpuscular Hgb Conc 34.3 g/dL (32.0-36.0); Mean Corpuscular Volume 89.4 fL (80.0-100.0); Mean Platelet Volume 10.1 fL (9.4-12.3); Monocytes # (auto) 0.69 K/uL (0.24-0.82); Monocytes % (auto) 11.4 %; Neutrophils # (auto) 4.52 K/uL (1.4-6.5); Neutrophils % (auto) 74.6 %; Platelet Count 203 K/uL (130-400); RDW Coefficient of Variation 14.4 % (11.5-14.5); RDW Standard Deviation 46.7 fL (36.4-46.3); Red Blood Count 3.88 M/uL (3.93-5.22); White Blood Count 6.06 K/ul (4.8-10.8)
[2021-10-24 06:23] LABS: INR 1.2 (0.9-1.1); Prothrombin Time 12.4 Seconds (9.0-12.0)
[2021-10-24 06:34] LABS: Albumin Globulin Ratio 1.5 (0.9-2); Albumin Level 3.1 gm/dl (3.4-5.0); BUN Creatinine Ratio 16.4 (10-20); Bilirubin,Total 1.4 mg/dl (0.2-1.0); C Reactive Protein 4.22 mg/dl (0-0.5); Calcium 7.8 mg/dl (8.5-10.1); Creatinine Clr Calc Pharmacy 42.1 ml/min; Est GFR (African American) 85.2 ml/min; Est GFR (Non-African American) 73.5 ml/min; Globulin 2.1 gm/dl (2.5-4.0); Phosphorus 3.2 mg/dl (2.5-4.9); Potassium 3.6 mmol/L (3.5-5.1); Total Protein 5.2 gm/dl (6.0-8.3)
--- NOTE | 2021-10-24 09:04 | Gastrointestinal Consultation ---
Date of Consultation October 24, 2021 Assessment & Plan (1) Transaminitis: Difficult to know how excited to get about transaminitis in an 86 year old patient. More than likely related to the statin. Could have Hep A but risk factors seem low. Except under cases of fulminant hepatic failure and easily treatable conditions, elevated LFT's are likely not to hurt someone at her age. Typically workup is not done until they have been documented to be elevated for six months. They have fallen precipitously over night. I would keep her off atorvastatin and observe. If she remains symptom free she can go home and have these followed as an outpatient. History of Present Illness Reason for Consultation: Transaminitis Attending Physician: Enedelia Chamberlain MD History of Present Illness 86 year old female admitted with transaminitis. She is pleasantly demented. Review of history taken by admitting doctor through spouse is that nothing is really new for her other than being started on a statin by PCP. She does say that she and her spouse eat out and she enjoys seafood although she says she doesn't eat raw seafood. Transaminases markedly elevated on admit from last set seen. Today's are much better. She is asymptomatic with regards to GI symptoms. Allergies Allergy/AdvReac Type Severity Reaction Status Date / Time adhesive Allergy Unknown UNKNOWN Verified 10/23/21 21:14 Bactrim Allergy Unknown UNKNOWN Verified 10/30/15 15:13 Cephalosporins Allergy Unknown UNKNOWN Verified 10/23/21 21:14 neomycin Allergy Unknown UNKNOWN Verified 10/23/21 21:14 Penicillins Allergy Unknown UNKNOWN Verified 10/23/21 21:14 Sulfa (Sulfonamide Allergy Unknown UNKNOWN Verified 10/23/21 21:14 Antibiotics) sulfamethoxazole [Bactrim] Allergy Unknown UNKNOWN Verified 10/23/21 21:14 trimethoprim [Bactrim] Allergy Unknown UNKNOWN Verified 10/23/21 21:14 Home Medications Medication Instructions Recorded Confirmed Type bimatoprost 0.01 % eye drops 1 drp OPB HS 11/07/20 10/23/21 History (Bab[place]unde) brinzolamide 1 % eye 1 drp OPB BID 11/07/20 10/23/21 History drops,suspension memantine 10 mg tablet 10 mg PO BID 11/07/20 10/23/21 History rivastigmine 4.6 mg/24 hour 1 patch topical DAILY 11/07/20 10/23/21 History transdermal patch timolol maleate 0.25 % eye drops 1 drp OPB QAM 11/07/20 10/23/21 History Patient History Social History Smoking Status: Never smoker Hx Alcohol Use: No Hx Substance Use: No Preferred Language: [place]i Communication Ability: Impaired Communication Ability Comment: Patient has difficulty remembering medical history Dump Motor Operator Required: No Beliefs That Will Affect Care: None Current Living Situation: Spouse Current Living Situation Comment: lives at home with Feels Safe at Home: Yes Safety Concerns: Feels Safe At This Time Assistive Devices: None Review of Systems Review of Systems: All systems reviewed & are unremarkable except as noted in HPI & below Physical Exam Constitutional: WD/WN, vitals as above no acute distress Eyes: PERRL, conjunctivae normal, anicteric sclerae ENMT: external ear and nose normal, oropharynx normal Neck: trachea midline, no thyromegaly Respiratory: normal respiratory effort, lungs clear to auscultation Cardiovascular: RRR, no murmur, no edema Gastrointestinal (Abdomen): normal bowel sounds, soft, nontender, no hepatosplenomegaly Musculoskeletal: Extremities: no cyanosis and no clubbing Skin: no rashes, warm and dry Neurologic: PERRL, EOMI, accommodation nl, no face palsy, no dysarthria Psychiatric: Orientation: alert and oriented x 3 Results & Data ([facility]) Vital Signs (Past 12 Hours) Vital Signs Temp Pulse Pulse Resp BP BP Pulse Ox 10/24/21 07:50 36.8 C 83 18 107/65 95 10/24/21 07:23 88 10/24/21 03:21 36.6 C 103 H 20 100/62 95 10/24/21 03:17 93 H 10/23/21 23:01 36.9 C 94 H 20 102/64 96 O2 Del Method 10/24/21 07:50 Room Air 10/24/21 07:23 10/24/21 03:21 Room Air 10/24/21 03:17 10/23/21 23:01 Room Air Laboratory Results Laboratory Results WBC 6.06 K/ul (4.8-10.8) 10/24/21 05:26 RBC 3.88 M/uL (3.93-5.22) L 10/24/21 05:26 Hgb 11.9 g/dl (12.0-16.0) L 10/24/21 05:26 Hct 34.7 % (34.1-44.9) 10/24/21 05:26 MCV 89.4 fL (80.0-100.0) 10/24/21 05:26 MCH 30.7 pg (25.0-34.0) 10/24/21 05:26 MCHC 34.3 g/dL (32.0-36.0) 10/24/21 05:26 RDW Std Deviation 46.7 fL (36.4-46.3) H 10/24/21 05:26 RDW Coeff of Erin 14.4 % (11.5-14.5) 10/24/21 05:26 Plt Count 203 K/uL (130-400) 10/24/21 05:26 MPV 10.1 fL (9.4-12.3) 10/24/21 05:26 Immature Gran % (Auto) 0.5 % 10/24/21 05:26 Neut % (Auto) 74.6 % 10/24/21 05:26 Lymph % (Auto) 9.2 % 10/24/21 05:26 Angelina % (Auto) 11.4 % 10/24/21 05:26 Eos % (Auto) 4.0 % 10/24/21 05:26 Baso % (Auto) 0.3 % 10/24/21 05:26 Neut # (Auto) 4.52 K/uL (1.4-6.5) 10/24/21 05:26 Lymph # (Auto) 0.56 K/uL (1.2-3.4) L 10/24/21 05:26 Angelina # (Auto) 0.69 K/uL (0.24-0.82) 10/24/21 05:26 Eos # (Auto) 0.24 K/uL (0-0.50) 10/24/21 05:26 Baso # (Auto) 0.02 K/uL (0-0.2) 10/24/21 05:26 Immature Gran # (Auto) 0.03 K/uL (0.00-0.02) H 10/24/21 05:26 ESR 16 mm/hr (0-30) 10/23/21 17:47 PT 12.4 Seconds (9.0-12.0) H 10/24/21 05:26 INR 1.2 (0.9-1.1) H 10/24/21 05:26 Sodium 135 mmol/L (136-145) L 10/24/21 05:26 Potassium 3.6 mmol/L (3.5-5.1) 10/24/21 05:26 Chloride 107 mmol/L (98-107) 10/24/21 05:26 Carbon Dioxide 25 mmol/L (21-32) 10/24/21 05:26 Anion Gap 3 (3-11) 10/24/21 05:26 BUN 12 mg/dl (6-23) 10/24/21 05:26 Creatinine 0.73 mg/dl (0.6-1.2) 10/24/21 05:26 Est Cr Clr Drug Dosing 42.1 ml/min 10/24/21 05:26 Est GFR ( Amer) 85.2 ml/min 10/24/21 05:26 Est GFR (Non-Af Amer) 73.5 ml/min 10/24/21 05:26 BUN/Creatinine Ratio 16.4 (10-20) 10/24/21 05:26 Glucose 115 mg/dl (70-99(Fasting)) H 10/24/21 05:26 Calcium 7.8 mg/dl (8.5-10.1) L 10/24/21 05:26 Phosphorus 3.2 mg/dl (2.5-4.9) 10/24/21 05:26 Magnesium 2.0 mg/dl (1.7-2.4) 10/24/21 05:26 Total Bilirubin 1.4 mg/dl (0.2-1.0) H 10/24/21 05:26 AST 368 U/L (13-39) H 10/24/21 05:26 ALT 312 U/L (7-52) H 10/24/21 05:26 Alkaline Phosphatase 222 U/L (34-104) H 10/24/21 05:26 Total Creatine Kinase 63 U/L (26-192) 10/24/21 05:26 Troponin I High Sens 7.9 pg/ml (0-14) 10/23/21 17:47 C-Reactive Protein 4.22 mg/dl (0-0.5) H 10/24/21 05:26 Total Protein 5.2 gm/dl (6.0-8.3) L 10/24/21 05:26 Albumin 3.1 gm/dl (3.4-5.0) L 10/24/21 05:26 Globulin 2.1 gm/dl (2.5-4.0) L 10/24/21 05:26 Albumin/Globulin Ratio 1.5 (0.9-2) 10/24/21 05:26 Urine Color Yellow 10/23/21 21:37 Urine Appearance Clear (Clear) 10/23/21 21:37 Urine pH 8.5 (4.5-7.5) H 10/23/21 21:37 Ur Specific [place] > 1.045 (1.000-1.030) H 10/23/21 21:37 Urine Protein Trace (Negative) H 10/23/21 21:37 Urine Glucose (UA) Negative (Negative) 10/23/21 21:37 Urine Ketones Trace (Negative) H 10/23/21 21:37 Urine Blood Negative (Negative) 10/23/21 21:37 Urine Nitrite Negative (Negative) 10/23/21 21:37 Urine Bilirubin Negative (Negative) 10/23/21 21:37 Urine Urobilinogen Negative (Negative) 10/23/21 21:37 Ur Leukocyte Esterase Negative (Negative) 10/23/21 21:37 Urine WBC (Auto) 1-5 /hpf (0-5) 10/23/21 21:37 Urine RBC (Auto) 0-4 /hpf (0-4) 10/23/21 21:37 U Hyaline Cast (Auto) 0 /lpf (0-5) 10/23/21 21:37 U Epithel Cells (Auto) 10-20 /lpf (0-5) H 10/23/21 21:37 Urine Bacteria (Auto) Negative (Negative) 10/23/21 21:37 Ur Renal Epithelial Cell Cancelled 10/23/21 17:47 Urine Crystals Cancelled 10/23/21 17:47 Calcium Oxalate Crystal Cancelled 10/23/21 17:47 Uric Acid Crystals Cancelled 10/23/21 17:47 Triple Phos Crystals Cancelled 10/23/21 17:47 Other Crystals Cancelled 10/23/21 17:47 Amorphous Sediment Cancelled 10/23/21 17:47 Granular Casts Cancelled 10/23/21 17:47 Waxy Casts Cancelled 10/23/21 17:47 RBC Casts Cancelled 10/23/21 17:47 WBC Casts Cancelled 10/23/21 17:47 Other Casts Cancelled 10/23/21 17:47 Urine Mucus Cancelled 10/23/21 17:47 Urine Other Cancelled 10/23/21 17:47 Urine Trichomonas Cancelled 10/23/21 17:47 Urine Yeast Cancelled 10/23/21 17:47 Urine Sperm Cancelled 10/23/21 17:47 Ur Oval Fat Bodies Cancelled 10/23/21 17:47 Acetaminophen < 3 ug/ml (10-30) L 10/24/21 00:01 SARS-CoV-2 (PCR) NEGATIVE (Negative) 10/23/21 17:47 Influenza Type A (PCR) Negative (Neg) 10/23/21 17:47 Influenza Type B (PCR) Negative (Neg) 10/23/21 17:47 RSV (RT-PCR) Negative (Neg) 10/23/21 17:47 Impressions Abdomen/Pelvis CT 10/23/21 17:[address] WITH IV CONTRAST CT DOSE: 475.52 mGy.cm HISTORY: Acute nausea and vomiting N/V TECHNIQUE: Multiaxial CT images of the abdomen and pelvis were performed following the IV administration of 88 cc of Optiray, A dose lowering technique was utilized adhering to the principles of ALARA. COMPARISON STUDY: None. FINDINGS: The study is motion degraded. Subsegmental bibasilar atelectasis. There is no pneumatosis or pneumoperitoneum. Cardiomegaly with coronary artery calcifications. The spleen, pancreas, adrenal glands and gallbladder are unremarkable. Liver is also within normal limits. Patency of the hepatic and portal veins. Symmetric enhancement of the kidneys. No hydronephrosis. Unremarkable urinary bladder. Calcifications of the uterus are suggestive of fibroids. There is questioned thickening of the fundal endometrium. Atherosclerosis of the aorta without aneurysm. There is no lymphadenopathy identified. Tiny hiatal hernia. No bowel obstruction or bowel wall thickening. Colonic diverticulosis without acute diverticulitis. Mild to moderate colonic fecal retention. Normal appendix. Unremarkable soft tissues. Multilevel degenerative changes of the lumbar spine. Probable disc extrusion posterior to L5 results in at least moderate central canal stenosis. IMPRESSION: 1. No bowel obstruction or bowel wall thickening. Normal appendix. 2. Colonic diverticulosis without acute diverticulitis. 3. Fibroid uterus. 4. Small hiatal hernia. 5. Additional findings as above. ACT 112: Negative or not required by law. The above report was generated using voice recognition software. It may contain grammatical, syntax or spelling errors. Electronically signed by: Kana Justice M.D. 10/23/2021 7:13 PM Chest X-Ray 10/23/21 17:12 XR chest 1V portable CLINICAL HISTORY: N/V TECHNIQUE: Single frontal radiograph of the chest was obtained. Comparison: Comparison is made to 06/22/[address] chest 02/12/2006 FINDINGS: No lines and tubes are seen. Calcified aortic knob is seen. The lungs are clear. No evidence of pleural effusion or pneumothorax. IMPRESSION: No acute chest disease. ACT 112: Negative or not required by law. Electronically signed by: Hans Paris M.D. 10/23/2021 5:34 PM Gallbladder Ultrasound 10/23/21 19:24 US gallbladder HISTORY: 86 years-old Female Transaminitis, vomiting acute nausea with vomiting COMPARISON: CT abdomen and pelvis of same day TECHNIQUE: Multiple real-time sonographic images of the abdominal right upper quadrant were obtained assessing grayscale appearance and color flow FINDINGS: The visualized pancreas is unremarkable. The liver is within normal limits measuring 13.67 m in length. No hepatic mass identified. Trace gallbladder sludge without cholelithiasis, wall thickening or pericholecystic fluid. Negative sonographic Manning's sign. Normal common bile duct, 5 mm. The imaged right kidney is unremarkable without hydronephrosis. IMPRESSION: 1. Trace gallbladder sludge without cholelithiasis or sonographic evidence of acute cholecystitis. 2. No biliary ductal dilation. ACT 112: Negative or not required by law. The above report was generated using voice recognition software. It may contain grammatical, syntax or spelling errors. Electronically signed by: Kana Justice M.D. 10/23/2021 8:40 PM
[2021-10-24] MEDS: ENOXAPARIN INJ 30 MG/0.3 ML SYR SQ SCH (10:27)
--- NOTE | 2021-10-24 15:40 | Hospitalist Progress Note ---
Date of Service October 24, 2021 Assessment & Plan (1) Transaminitis: Plan: Present on admission with nausea and vomiting with AST 904 and ALT 448 Unknown etiology Unsure if related to Statins since patient started atorvastatin [address] abd/pelvis showed no bowel obstruction or bowel wall thickening. Colonic diverticulosis without acute diverticulitis. Gallbladder u/s showed Trace gallbladder sludge without cholelithiasis or sonographic evidence of acute cholecystitis. LFT trending down with AST 368 and ALT 312 Continue to hold statin Gastro on board hepatitis panel, GARY, ggt, pending Continue monitor LFT (2) Nausea and vomiting: Plan: unclear if related to liver findings no subsequent episodes denies nausea on exam denies abdominal pain CT-AP unremarkable for intraabdominal pathology Tolerated diet stable (3) Mild dementia: Plan: Continue memantine and rivastigmine patch for many years had episode of sundowning in ED s/p IM zyprexa with good result Please redirection if patient confused Plan DVT ppx: lovenox Code Status: Full Code Dispo: telemetry Admission and Anticipated Discharge Date Admission Date: October 23, 2021 Subjective Pt was seen and examined for follow up of elevated Liver enzymes Lying in bed with no acute with at bedside Pt said that she feels fine said that they work out 3 times a week (M/W/F) denies any chest pain, palpitation, dizziness and SOB Review of Systems Review of Systems: All systems reviewed & are unremarkable except as noted in Subjective Physical Exam Physical Exam: General- No acute distress Head- atraumatic Eyes- PERRL, EOMI, ENT- oropharynx clear Neck- supple, no JVD Lungs- clear to auscultation Heart- regular rhythm; no murmur Abdomen- normal bowel sounds, soft, nontender Extremities- no calf tenderness Neuro- alert, oriented x 3; PERRL, EOMI; no facial palsy; no dysarthria Skin- warm & dry Results & Data Results & Data ([facility]) Vital Signs (Past 12 Hours) Vital Signs Temp Pulse Pulse Resp BP Pulse Ox O2 Del Method 10/24/21 11:43 36.7 C 89 18 100/57 L 94 10/24/21 07:50 36.8 C 83 18 107/65 95 Room Air 10/24/21 07:23 88 (1) Nausea and vomiting Vomiting type: unspecified Qualified Code(s): R11.2 - Nausea with vomiting, unspecified
--- NOTE | 2021-10-24 17:43 | Electrocardiogram Report ---
Test Reason : Blood Pressure : / mmHG Vent. Rate : 091 BPM Atrial Rate : 091 BPM P-R Int : 144 ms QRS Dur : 076 ms QT Int : 332 ms P-R-T Axes : 051 009 016 degrees QTc Int : 408 ms Poor data quality, interpretation may be adversely affected Normal sinus rhythm Normal ECG When compared with ECG of 07-NOV-2020 07:53, No significant change was found Confirmed by Nabor Barrera ([id number]) on 10/24/2021 5:43:46 PM Referred By: REFERRED SELF Confirmed By:Henry Barrera
[2021-10-24] MEDS ORDERED: OLANZapine 10 MG/2.1 ML SDV IM PRN (20:13)
[2021-10-24] MEDS: BRINZOLAMIDE (AZOPT) OPS 10 ML BTL OPB SCH (20:54)
[2021-10-24] MEDS ORDERED: BIMATOPROST 0.01% OP SOLN 2.5 ML BTL OPB SCH (21:00)
[2021-10-25 07:07] LABS: Albumin Globulin Ratio 1.3 (0.9-2); Albumin Level 3.1 gm/dl (3.4-5.0); BUN Creatinine Ratio 14.3 (10-20); C Reactive Protein 3.75 mg/dl (0-0.5); Calcium 8.2 mg/dl (8.5-10.1); Creatinine Clr Calc Pharmacy 43.9 ml/min; Est GFR (African American) 89.7 ml/min; Est GFR (Non-African American) 77.4 ml/min; Globulin 2.4 gm/dl (2.5-4.0); Potassium 3.8 mmol/L (3.5-5.1); Total Protein 5.5 gm/dl (6.0-8.3)
--- NOTE | 2021-10-25 07:29 | Gastroenterology Progress Note ---
Date of Service October 25, 2021 Assessment & Plan (1) Transaminitis: Plan: LFT's are much better. Some serologies still pending. No further recs now. Will sign off. Please reconsult if circumstances warrant Admission and Anticipated Discharge Date Admission Date: October 23, 2021 Subjective She has no complaints. Pleasantly confused but talkative. Physical Exam Constitutional: WD/WN, vitals as above no acute distress Results & Data ([facility]) Vital Signs (Past 12 Hours) Vital Signs Temp Pulse Pulse Resp BP Pulse Ox O2 Del Method 10/25/21 01:22 36.4 C L 78 20 117/72 95 Room Air 10/25/21 01:01 80 Laboratory Results 10/25/21 10/23/21 Range/Units 06:31 17:57 Sodium 142 (136-145) mmol/L Potassium 3.8 (3.5-5.1) mmol/L Chloride 113 H (98-107) mmol/L Carbon Dioxide 24 (21-32) mmol/L Anion Gap 5 (3-11) BUN 10 (6-23) mg/dl Creatinine 0.70 (0.6-1.2) mg/dl Est Cr Clr Drug Dosing 43.9 ml/min Est GFR ( Amer) 89.7 ml/min Est GFR (Non-Af Amer) 77.4 ml/min BUN/Creatinine Ratio 14.3 (10-20) Glucose 91 (70-99(Fasting)) mg/dl Calcium 8.2 L (8.5-10.1) mg/dl Total Bilirubin 1.0 (0.2-1.0) mg/dl GGT 252 H (3-65) U/L AST 126 H (13-39) U/L ALT 197 H (7-52) U/L Alkaline Phosphatase 200 H (34-104) U/L C-Reactive Protein 3.75 H (0-0.5) mg/dl Total Protein 5.5 L (6.0-8.3) gm/dl Albumin 3.1 L (3.4-5.0) gm/dl Globulin 2.4 L (2.5-4.0) gm/dl Albumin/Globulin Ratio 1.3 (0.9-2)
[2021-10-25] MEDS: ENOXAPARIN INJ 30 MG/0.3 ML SYR SQ SCH (08:46)
[2021-10-25] MEDS: BRINZOLAMIDE (AZOPT) OPS 10 ML BTL OPB SCH (08:47)
[2021-10-25] MEDS ORDERED: TIMOLOL GFS 0.5% OPH SOLN 74 DROPS/5 ML BTL OPB SCH (09:00)
[2021-10-25] MEDS ORDERED: RIVASTIGMINE PATCH TD SCH (09:00)
--- NOTE | 2021-10-25 09:20 | Discharge Summary ---
Date of Service October 25, 2021 Admission HPI Per Admitting Provider The patient is an 86 year old woman with pmh mild dementia who presented with a 1-2 days of feeling "cold" and weakness and one episode of vomiting on the way to the hospital. The history was taken mainly from her , Danny Rosa, as the patient was mildly confused in the ED. She reported not complaints on evaluation. Her noted that she expressed feeling a little weak and at times "cold" that required extra clothing. He denied that she had a fever, cough, shortness of breath, chest pain, diarrhea, abdominal pain, ambulatory issues. She did not have nausea or vomiting until on the way to the hospital, she had one episode of vomiting that he described as "minimal." Of not she is only taking memantine and rivastigmine patch for up to 10 years for dementia. She recently, about 3 days ago, started taking atorvastatin prescribed by her doctor. Otherwise, he denies any other new medications, no other sick contacts, tick exposures, supplements, new foods, alcohol use, acetaminophen ingestion. S he is mostly independent but relies on her for some ADLs but she is ambulatory without issue, going to the gym and walking about 3x/week. Denies alcohol, tobacco, drug use. Discussed with patient's Code status and they have an advanced directive that indicates full code but would not want life prolonged on ventilator if things did not improve relatively quickly and course is to be prolonged and indicated that he is the POA. Patient status put as Full Code. In the ED, vitals initially stable. Labs were significant for WBC 7, PLT 237, tbili 1.2, AST 904, ALT 448, ALP 254 (previously normal). Imaging with CT-AP and Liver US were unremarkable for biliary or hepatic abnormalities. She was admitted to medicine for further work up and management. Admission Exam Per Admitting Provider Constitutional:WD/WN, vitals as above Eyes:PERRL, conjunctivae normal, anicteric sclerae ENMT:external ear and nose normal, oropharynx normal Neck:trachea midline, no thyromegaly Respiratory:normal respiratory effort, lungs clear to auscultation Cardiovascular:RRR, no murmur, no edema Gastrointestinal (Abdomen):normal bowel sounds, soft, nontender, no hepatosplenomegaly Musculoskeletal:no cyanosis or clubbing, extremities motor strength 5/5 Skin:no rashes, warm and dry Neurologic:patellar DTR's 2+ bilat, sensation intact and PERRL, EOMI, accommodation nl, no face palsy, no dysarthria Psychiatric:Orientation: alert, oriented to person, oriented to time and cooperative; + not oriented to place Affect: euthymic affect Principal Diagnosis Transaminitis: Nausea and vomiting: Mild dementia: Discharge Exam General- No acute distress Head- atraumatic Eyes- PERRL, EOMI, ENT- oropharynx clear Neck- supple, no JVD Lungs- clear to auscultation Heart- regular rhythm; no murmur Abdomen- normal bowel sounds, soft, nontender Extremities- no calf tenderness Neuro- alert, oriented x 3; PERRL, EOMI; no facial palsy; no dysarthria Skin- warm & dry Discharge Data Allergies Allergy/AdvReac Type Severity Reaction Status Date / Time adhesive Allergy Unknown UNKNOWN Verified 10/23/21 21:14 Bactrim Allergy Unknown UNKNOWN Verified 10/30/15 15:13 Cephalosporins Allergy Unknown UNKNOWN Verified 10/23/21 21:14 neomycin Allergy Unknown UNKNOWN Verified 10/23/21 21:14 Penicillins Allergy Unknown UNKNOWN Verified 10/23/21 21:14 Sulfa (Sulfonamide Allergy Unknown UNKNOWN Verified 10/23/21 21:14 Antibiotics) sulfamethoxazole [Bactrim] Allergy Unknown UNKNOWN Verified 10/23/21 21:14 trimethoprim [Bactrim] Allergy Unknown UNKNOWN Verified 10/23/21 21:14 Consultations 10/23/21 20:59 ED Decision to Admit Stat 10/23/21 21:39 Consult Gastroenterology Routine Ordered Studies 10/23/21 17:11 CT Abd and Pelvis [CT abd pelvis IV con only] Stat 10/23/21 19:24 US gallbladder Stat US gallbladder HISTORY: 86 years-old Female Transaminitis, vomiting acute nausea with vomiting COMPARISON: CT abdomen and pelvis of same day TECHNIQUE: Multiple real-time sonographic images of the abdominal right upper quadrant were obtained assessing grayscale appearance and color flow FINDINGS: The visualized pancreas is unremarkable. The liver is within normal limits measuring 13.67 m in length. No hepatic mass identified. Trace gallbladder sludge without cholelithiasis, wall thickening or pericholecystic fluid. Ne gative sonographic Manning's sign. Normal common bile duct, 5 mm. The imaged right kidney is unremarkable without hydronephrosis. IMPRESSION: 1. Trace gallbladder sludge without cholelithiasis or sonographic evidence of acute cholecystitis. 2. No biliary ductal dilation. ACT 112: Negative or not required by law. The above report was generated using voice recognition software. It may contain grammatical, syntax or spelling errors. Electronically signed by: Kana Justice M.D. 10/23/2021 8:40 PM Dictated:10/23/212038 Transcribed: 10/23/212038 XR chest 1V portable CLINICAL HISTORY: N/V TECHNIQUE: Single frontal radiograph of the chest was obtained. Comparison: Comparison is made to 06/22/[address] chest 02/12/2006 FINDINGS: No lines and tubes are seen. Calcified aortic knob is seen. The lungs are clear. No evidence of pleural effusion or pneumothorax. IMPRESSION: No acute chest disease. ACT 112: Negative or not required by law. Electronically signed by: Hans Paris M.D. 10/23/2021 5:34 PM Dictated:10/23/211732 Transcribed: 10/23/211732 ABDOMEN AND PELVIS CT WITH IV CONTRAST CT DOSE: 475.52 mGy.cm HISTORY: Acute nausea and vomiting N/V TECHNIQUE: Multiaxial CT images of the abdomen and pelvis were performed following the IV administration of 88 cc of Optiray, A dose lowering technique was utilized adhering to the principles of ALARA. COMPARISON STUDY: None. FINDINGS: The study is motion degraded. Subsegmental bibasilar atelectasis. There is no pneumatosis or pneumoperitoneum. Cardiomegaly with coronary artery calcifications. The spleen, pancreas, adrenal glands and gallbladder are unremarkable. Liver is also within normal limits. Patency of the hepatic and portal veins. Symmetric enhancement of the kidneys. No hydronephrosis. Unremarkable urinary bladder. Calcifications of the uterus are suggestive of fibroids. There is questioned thickening of the fundal endometrium. Atherosclerosis of the aorta without aneurysm. There is no lymphadenopathy identified. Tiny hiatal hernia. No bowel obstruction or bowel wall thickening. Colonic diverticulosis without acute diverticulitis. Mild to moderate colonic fecal retention. Normal appendix. Unremarkable soft tissues. Multilevel degenerative changes of the lumbar spine. Probable disc extrusion posterior to L5 results in at least moderate central canal stenosis. IMPRESSION: 1. No bowel obstruction or bowel wall thickening. Normal appendix. 2. Colonic diverticulosis without acute diverticulitis. 3. Fibroid uterus. 4. Small hiatal hernia. 5. Additional findings as above. ACT 112: Negative or not required by law. The above report was generated using voice recognition software. It may contain grammatical, syntax or spelling errors. Electronically signed by: Kana Justice M.D. 10/23/2021 7:13 PM Dictated:10/23/211904 Transcribed: 10/23/211904 Hospital Course (1) Transaminitis: Present on admission with nausea and vomiting with AST 904 and ALT 448 Unknown etiology Unsure if related to Statins since patient started atorvastatin [address] abd/pelvis showed no bowel obstruction or bowel wall thickening. Colonic diverticulosis without acute diverticulitis. Gallbladder u/s showed Trace gallbladder sludge without cholelithiasis or sonographic evidence of acute cholecystitis. LFT continue trending down with AST from 368 to 126 and ALT from 312 to 197 ALK 254 --> 222 --> 200 Elevated GGT Continue to hold statin for now Gastro on board Ok from GI standpoint to discharge Check LFT in 1 week (2) Nausea and vomiting: unclear if related to liver findings no subsequent episodes denies nausea on exam denies abdominal pain CT abd/pelvis showed unremarkable for intraabdominal pathology Tolerated diet stable (3) Mild dementia: Continue memantine and rivastigmine patch for many years had episode of sundowning in ED s/p IM zyprexa with good result Please redirection if patient confused Plan DVT ppx: lovenox Code Status: Full Code Dispo: telemetry Total Time Total Time Spent Total Time Spent (In Minutes): 35 minutes Discharge Plan Discharge Items Patient Disposition: Home - Self-Care Reason For Visit: TRANSAMINITIS Discharge Diagnosis: Transaminitis: Nausea and vomiting: Mild dementia: Activity: Resume your previous activity Non-emergency contact: Primary Care Provider Call non-emergency contact if: you have any medication questions Follow-up/Referrals: Rom Frazier MD [Primary Care Provider] - (Date & Time 11/01/2021 10:40 AM Provider Rom Frazier MD Department Family Practice [facility] ) Diet: Regular Addtl Attending Provider Instructions: Follow up with your primary care provder 11/01/2021 @ 10:40 AM Rom Frazier MD Department [facility] Check LFT in 1 week to monitor your liver enzymes Continue to hold atorvastatin (the medication for the cholesterol) for now due to elevate Liver enzymes Your provider will discuss the hepatitis serology testing ( result are pending) with you at your next follow up appointment Fall precaution Seek medical attention if symptoms reoccurs Pending Studies at Discharge: Yes Studies:: Hepatitis serology Stand-Alone Forms: My [facility], Smoking Cessation Medications and DC Order Prescriptions: Continued brinzolamide 1 % drops,suspension 1 drp OPB BID timolol maleate 0.25 % drops 1 drp OPB QAM memantine 10 mg tablet 10 mg PO BID rivastigmine 4.6 mg/24 hour patch 24 hour 1 patch topical DAILY Lumigan 0.01 % drops 1 drp OPB HS Discharge Orders: Discharge Order (Routine); Ordered 10/25/21 Ordered By: Enedelia Chamberlain Admission Data Admit Date/Time: 10/23/21 21:32 Attending Provider: Enedelia Chamberlain Admit Provider: Jostin Pereira Primary Care Provider: Rom Frazier Other Providers: Jostin Pereira ; Shasta Hall Jr
[2021-10-25 12:28] LABS: Anti Nuclear Antibody Screen NEGATIVE (NEGATIVE); HBSAG NON-REACTIVE (NON-REACTIVE); Hepatitis A Antibody IgM NON-REACTIVE (NON-REACTIVE); Hepatitis B Core Antibody IgM NON-REACTIVE (NON-REACTIVE)
== END 2021-10-25 09:46 | disposition home or self-care (01) | DRG 948 ==
LOC: ED 14:17 → INTOOBSV 21:32 → 2N 21:32